=== PATIENT | female | born 1995 | race Caucasian/White ===

== ENCOUNTER 2023-12-18 20:56 | Outpatient (CLI) | payer BC, SELFPAY | END 2023-12-18 20:57 | disposition home or self-care (01) | LOC: SLEEP 21:03 | PROVIDERS: PCP Chiropractor; Visit Provider Internal Medicine | DX: G47.33 Obstructive sleep apnea (adult) (pediatric) (principal); G25.81 Restless legs syndrome | CPT/HCPCS: 95810 ==